=== PATIENT | female | born 1935 | race Hispanic/Latino ===

== ENCOUNTER 2021-11-03 11:40 | Emergency (ER) | payer MEDICARE, OTHER ==
[~2021-11-03] VITALS: Ht 160 cm; Wt 63.5 kg
[2021-11-03] MEDS ORDERED: 0.9%NACL 1000ML 1,000 ML IV SCH (12:00)
[2021-11-03 12:03] LABS: BASOPHILS % (AUTO) 0.7 % (0.0-5.0); EOSINOPHILS % (AUTO) 1.3 % (0.0-8.0); HEMATOCRIT 44.8 % (36-48); LYMPHOCYTES % (AUTO) 36.2 % (21.0-51.0); MEAN CORPUSCULAR HEMOGLOBIN 30.8 pg (27.0-33.0); MEAN CORPUSCULAR HGB CONC 33.5 g/dL (32.0-36.0); MONOCYTES % (AUTO) 9.1 % (3.0-13.0); NEUTROPHILS % (AUTO) 52.4 % (40.0-77.0); PLATELET COUNT (AUTO) 205 K/uL (130-400); RED BLOOD CELL COUNT(AUTO) 4.87 MIL/uL (4.00-5.50); RED CELL DISTRIBUTION WIDTH 14.2 % (11.0-15.5); WHITE BLOOD COUNT (AUTO) 6.9 K/uL (4.8-10.8)
[2021-11-03 12:12] LABS: INR 0.98 (0.85-1.15); PROTHROMBIN TIME 10.7 SEC (9.6-11.6)
[2021-11-03 12:20] LABS: CREATININE 0.9 mg/dL (0.5-1.5); POTASSIUM 3.7 mmol/L (3.5-5.1)
[2021-11-03 12:24] LABS: ALBUMIN 3.6 g/dL (3.5-5.0); BILIRUBIN,TOTAL 0.4 mg/dL (0.2-1.0); TOTAL PROTEIN, SERUM 7.7 g/dL (6.0-8.3)
[2021-11-03 12:25] LABS: B-TYPE NATRIURETIC PEPTIDE 439 pg/mL (0-100)
[2021-11-03 12:28] LABS: APPEARANCE,URINE Clear (CLEAR); BILIRUBIN,URINE Negative (NEGATIVE); COLOR,URINE Yellow (YELLOW); GLUCOSE, URINE (UA) Negative (NEGATIVE); KETONES,URINE Negative (NEGATIVE); LEUKOCYTE ESTERASE ,URINE Small (NEGATIVE); NITRATE,URINE Negative (NEGATIVE); OCCULT BLOOD,URINE Small (NEGATIVE); PROTEIN,URINE POS 1+ mg/dL (NEGATIVE)
[2021-11-03 13:32] LABS: BACTERIA,URINE Few /HPF (None Seen); WBC,URINE 0-1 /HPF (0-1)
[2021-11-03] MEDS ORDERED: IOHEXOL-350 75 ML VIAL IV ONE (16:39)
[2021-11-03] MEDS ORDERED: ASPIRIN 81MG CHEW TAB PO ONE (21:30)
[2021-11-03] MEDS ORDERED: FENO54TA6 PO (23:58)
[2021-11-03] MEDS ORDERED: ALEN70TA80 PO (23:58)
[2021-11-04 11:02] VITALS: BP 126/45
== END 2021-11-04 11:49 | disposition short-term general hospital (02) ==
LOC: EDH 11:40
DX: I63.9 Cerebral infarction, unspecified (principal); Z20.822 Contact with and (suspected) exposure to COVID-19; Z79.899 Other long term (current) drug therapy
CPT/HCPCS: 36415; 70450; 70551; 71045; 71260; 80053; 81001; 82550; 83880; 84484 ×2; 85025; 85610; 87426; 93005; 96360; 99291; J7030; Q9967

== ENCOUNTER 2022-02-21 07:00 | Day surgery (SDC) | payer OTHER ==
[2022-02-14 15:16] LABS: BASOPHILS % (AUTO) 0.8 % (0.0-5.0); EOSINOPHILS % (AUTO) 1.9 % (0.0-8.0); MEAN CORPUSCULAR HEMOGLOBIN 30.3 pg (27.0-33.0); MEAN CORPUSCULAR HGB CONC 32.2 g/dL (32.0-36.0); MEAN CORPUSCULAR VOLUME 94.3 fL (79-99); MONOCYTES % (AUTO) 7.8 % (3.0-13.0); NEUTROPHILS % (AUTO) 51.3 % (40.0-77.0); PLATELET COUNT (AUTO) 215 K/uL (130-400); RED BLOOD CELL COUNT(AUTO) 4.35 MIL/uL (4.00-5.50); RED CELL DISTRIBUTION WIDTH 14.1 % (11.0-15.5); WHITE BLOOD COUNT (AUTO) 9.3 K/uL (4.8-10.8)
[2022-02-14 15:33] LABS: INR 1.01 (0.85-1.15)
[2022-02-14 15:34] LABS: CREATININE 0.8 mg/dL (0.5-1.5); PARTIAL THROMBOPLASTIN TIME 28.2 SEC (26.3-35.5); POTASSIUM 4.1 mmol/L (3.5-5.1)
[2022-02-20 10:37] VITALS: BP 154/69
[~2022-02-21] VITALS: Ht 152.4 cm; Wt 62.0 kg
[2022-02-21] VITALS (16 sets, daily range): BP systolic 144–169; BP diastolic 61–79
[~2022-02-21 07:00] MED LIST: ALEN70TA80 PO; FENO54TA6 PO; TRAZ-185 PO
[2022-02-21] MEDS ORDERED: LACTATED RINGERS 1000ML 1,000 ML IV ONE (07:56)
[2022-02-21] MEDS ORDERED: AEC81 PO (08:25)
[2022-02-21] MEDS ORDERED: EPINEPHRINE 1 MG/ML 30ML VIAL IJ ONE (08:36)
[2022-02-21] MEDS ORDERED: LIDOCAINE 1%-EPI 1:100,000 20 ML VIAL IJ ONE (08:36)
[2022-02-21] MEDS ORDERED: BACITRACIN 28.4 GM OINT TP ONE (08:36)
[2022-02-21] MEDS ORDERED: ONDANSETRON 4MG INJ ONE (08:47)
[2022-02-21] MEDS ORDERED: ROCURONIUM 10MG/1ML SYR 10 MG/ML ML ONE (08:47)
[2022-02-21] MEDS ORDERED: PROPOFOL 10 MG/ML 20ML VIAL IV ONE (08:47)
[2022-02-21] MEDS ORDERED: DEXAMETHASONE SOD PHOSPHATE 10MG/ML 1ML VIAL ONE (08:47)
[2022-02-21] MEDS ORDERED: FENTANYL CITRATE PF 50 MCG/1 ML 5ML AMP IV ONE (08:48)
[2022-02-21] MEDS ORDERED: EPHEDRINE SULFATE 50 MG/ML AMPULE ONE (09:25)
[2022-02-21] MEDS ORDERED: PHENYLEPHRINE HCL 10 MG/ML 1ML VIAL IV ONE (09:25)
[2022-02-21] MEDS ORDERED: SUGAMMADEX SODIUM 200 MG/2 ML VIAL IV ONE (09:38)
== END 2022-02-21 11:20 | disposition home or self-care (01) ==
LOC: DAH 07:00
PROVIDERS: ATTEND Otolaryngology
DX: J32.0 Chronic maxillary sinusitis (principal); J32.3 Chronic sphenoidal sinusitis; J32.1 Chronic frontal sinusitis; J32.2 Chronic ethmoidal sinusitis; I45.10 Unspecified right bundle-branch block; Z79.01 Long term (current) use of anticoagulants; Z98.890 Other specified postprocedural states; Z86.73 Personal history of transient ischemic attack (TIA), and cerebral infarction without residual deficits; Z79.899 Other long term (current) drug therapy; Z79.82 Long term (current) use of aspirin
CPT/HCPCS: 31253; 31287; 36415; 80048; 85025; 85610; 85730; 87070; 87076; 87077 ×2; 87101; 87186 ×2; 87205; 87206; 87635; 93005; A4215; A4221; A4222; A4223; A4452; A4663; A6402; C9803; J0171; J1100; J2370; J2405; J2704; J3010; J3490 ×2; J7120